=== PATIENT | male | born 1970 | race Caucasian/White ===

== ENCOUNTER → 2019-01-19 | Outpatient (CLI) | payer BC | LOC: COL.LAB 14:03 | DX: Z22.322 Carrier or suspected carrier of Methicillin resistant Staphylococcus aureus (principal); L02.91 Cutaneous abscess, unspecified ==

== ENCOUNTER → 2019-01-19 | Outpatient (CLI) | payer BC | LOC: ZCOL.LAB 16:59 | DX: Z22.322 Carrier or suspected carrier of Methicillin resistant Staphylococcus aureus (principal); L02.91 Cutaneous abscess, unspecified ==